=== PATIENT | male | born 1980 | race Caucasian/White ===

== ENCOUNTER 2021-01-06 11:33 | Emergency (ER) | payer SELFPAY ==
[2021-01-06 11:47] VITALS: BP 150/97; PULSE 67; TEMP 97.8; BMI 34.9
[2021-01-06] MEDS ORDERED: LIDOCAINE 5% TOPICAL PATCH TP ONE (12:35)
[2021-01-06] MEDS ORDERED: METHOCARBAMOL 500 MG TABLET PO ONE (12:35)
[2021-01-06] MEDS ORDERED: KETOROLAC TROMETHAMINE 30 MG/1 ML VIAL IM ONE (12:36)
[2021-01-06] MEDS ORDERED: KETOROLAC TROMETHAMINE 30 MG/1 ML VIAL ONE (12:44)
[2021-01-06] MEDS ORDERED: LIDOCAINE 5% TOPICAL PATCH ONE (12:44)
[2021-01-06] MEDS ORDERED: METHOCARBAMOL 500 MG TABLET ONE (12:47)
[2021-01-06] MEDS ORDERED: LIDOCAINE PATCH REMOVAL MC ONE (22:00)
== END 2021-01-06 13:25 | disposition home or self-care (01) ==
LOC: JERFT 11:33
PROC: 3E0233Z Introduction of Anti-inflammatory into Muscle, Percutaneous Approach (ICD-10-PCS; principal; 2021-01-06)
DX: M54.5 Low back pain (principal)
CPT/HCPCS: 99284-25